=== PATIENT | female | born 1950 | race Caucasian/White ===

== ENCOUNTER 2018-12-18 15:45 | Emergency (ER) | payer OTHER, MEDICARE ==
[~2018-12-18] VITALS: Ht 154.9 cm; Wt 67.1 kg
--- NOTE | 2018-12-18 15:57 | NUR ---
CALLED [facility] TO REQUEST MED LIST
[2018-12-18 15:58] LABS: BASOPHILS % (AUTO) 0.5 % (0.0-2.0); EOSINOPHILS % (AUTO) 1.8 % (0.0-6.0); HEMATOCRIT 44 % (33-45); HEMOGLOBIN 14.9 g/dL (11.5-14.8); LYMPHOCYTES # (AUTO) 2.6 /CMM (0.8-4.8); LYMPHOCYTES % (AUTO) 28.2 % (20.0-44.0); MEAN CORPUSCULAR HGB CONC 34 g/dl (31.0-36.0); MEAN CORPUSCULAR VOLUME 91 fL (82-100); MONOCYTES # (AUTO) 0.7 /CMM (0.1-1.30); MONOCYTES % (AUTO) 7.3 % (2.0-12.0); NEUTROPHILS # (AUTO) 5.8 /CMM (1.8-8.9); NEUTROPHILS % (AUTO) 62.2 % (43.0-81.0); PLATELET COUNT (AUTO) 275 /CMM (150-450); RED BLOOD CELL COUNT(AUTO) 4.78 MIL/uL (4.0-5.2); WHITE BLOOD COUNT (AUTO) 9.3 K/uL (4.3-11.0)
[2018-12-18] MEDS ORDERED: IV NS 0.9% 1,000 ML BAG IV ONE (16:00)
[2018-12-18 16:07] LABS: CALCIUM, SERUM 8.7 mg/dL (8.5-10.1); CARBON DIOXIDE 22 mmol/L (21-32); CHLORIDE 101 mmol/L (98-107); CREATININE 0.8 mg/dL (0.6-1.3); GLUCOSE 118 mg/dL (74-106); POTASSIUM 3.6 mmol/L (3.5-5.1); SODIUM SERUM 136 mmol/L (136-145); UREA NITROGEN, BLOOD 8 mg/dL (7-18)
[2018-12-18] MEDS ORDERED: ALBU8.5H8 IH (16:11)
[2018-12-18] MEDS ORDERED: FLUT16SP16 BNOSTRILS (16:11)
[2018-12-18] MEDS ORDERED: ASPI-1152 PO (16:11)
[2018-12-18] MEDS ORDERED: RIFA550T PO (16:11)
[2018-12-18] MEDS ORDERED: CICL6.1H2 IH (16:11)
[2018-12-18 16:19] LABS: ALANINE AMINOTRANSFERASE 41 U/L (12-78); ALBUMIN 3.8 g/dL (3.4-5.0); ALKALINE PHOSPHATASE 85 U/L (46-116); ASPARTATE AMINOTRANSFERASE 50 U/L (15-37); B-TYPE NATRIURETIC PEPTIDE 41 PG/ML (0-125); BILIRUBIN,DIRECT 0.1 mg/dL (0.0-0.2); BILIRUBIN,TOTAL 0.3 mg/dL (0.2-1.0); TOTAL PROTEIN, SERUM 7.3 g/dL (6.4-8.2)
--- NOTE | 2018-12-18 16:47 | NUR ---
CALLED [facility] TO INITIATE TRANSFER
--- NOTE | 2018-12-18 16:51 | NUR ---
Pt awake and alert, brought in by ambulance with complains of chest palpitations, denies chest pain. SR on monitor, vital signs stable 97.3 81 155/87 18 100 % on 2L via nasal cannula. no complains of pain. pt states to have been driving when palpitations were felt this prompted her to call ambulance. pt states to have had an episode of diarrhea this am and yesterday. ordered ivf infusing on left AC #20
[2018-12-18] MEDS ORDERED: NITROGLYCERIN 0.4 MG/TAB BOTTLE SL ONE (17:00)
--- NOTE | 2018-12-18 17:39 | NUR ---
PT. REFUSED MEDICATION, EXPLAINED RISK AND BENEFITS. PATIENT RIGHTS RESPECTED. DR. MATA MADE AWARE WITH NO NEW ORDER.
--- NOTE | 2018-12-18 18:45 | NUR ---
pt's friend here to picker box operator pt to provide transportation to pt's vehicle.
--- NOTE | 2018-12-18 18:57 | NUR ---
iv access discontinued pt being discharged home. Discharge instructions and education materials discussed with pt. pt given opportunity to ask questions, no questions/clarification requested. Pt given copies of imaging and ecg to provide to her primary care physician. pt understands to make appt with primary tomorrow.
--- NOTE | 2018-12-18 19:04 | NUR ---
pt went home, ambulatory with steady gait, tolerated liquids without any complains of nausea.
[2018-12-18 19:06] VITALS: BP 135/90
== END 2018-12-18 19:04 | disposition home or self-care (01) ==
LOC: ER 15:46
DX: I47.1 Supraventricular tachycardia (principal); R19.7 Diarrhea, unspecified; I48.91 Unspecified atrial fibrillation; Z88.1 Allergy status to other antibiotic agents; Z60.2 Problems related to living alone; Z79.82 Long term (current) use of aspirin; Z79.899 Other long term (current) drug therapy
CPT/HCPCS: 36415; 71045-TC; 80048-TC; 80076-TC; 83735-TC; 83880; 84484-TC; 85025-TC; 85730-TC